=== PATIENT | male | born 1960 | race Caucasian/White ===

== ENCOUNTER 2021-05-26 10:19 | Outpatient (CLI) | payer BC | END 2021-05-26 10:20 | disposition home or self-care (01) | LOC: ULT 10:19 | PROVIDERS: ATTEND Internal Medicine Gastroenterology | DX: Z12.11 Encounter for screening for malignant neoplasm of colon (principal); K59.00 Constipation, unspecified; R14.0 Abdominal distension (gaseous); R10.13 Epigastric pain | CPT/HCPCS: 76700 ==

== ENCOUNTER 2021-07-03 08:35 | Outpatient (CLI) | payer BC | END 2021-07-03 08:36 | disposition home or self-care (01) | LOC: BICCT 08:35 | PROVIDERS: ATTEND Internal Medicine Gastroenterology | DX: Z12.11 Encounter for screening for malignant neoplasm of colon (principal); R14.0 Abdominal distension (gaseous); K59.09 Other constipation; R10.13 Epigastric pain; K80.20 Calculus of gallbladder without cholecystitis without obstruction; N20.0 Calculus of kidney; K44.9 Diaphragmatic hernia without obstruction or gangrene; E27.8 Other specified disorders of adrenal gland | CPT/HCPCS: 74177 ==